=== PATIENT | female | born 1995 | race Hispanic/Latino ===

== ENCOUNTER → 2016-08-24 | Outpatient (CLI) | payer BC, MEDICAID ==
[~2016-08-24] MED LIST: FERR325T74 PO; IBUP-1773 PO; NITR-65 PO; PREN-98 PO; PREN1TAB39 PO
--- NOTE | 2016-08-24 16:48 | Diagnostic Imaging Report ---
PROCEDURE: US OB SINGLE FETUS <14 WKS. INDICATION: Unsure of LMP, undergoing evaluation for dates. TECHNIQUE: Multiple real-time grayscale images were obtained of the gravid uterus. CORRELATION STUDY: None FINDINGS: There is presence of an early viable intrauterine . [place]-rump length measuring 2.62 cm for an estimated age of 9 weeks 3 days. This corresponds to an estimated date of delivery of 03/26/2017. cardiac activity at 174 beats per minute. No abnormal perigestational fluid collections. Imaging of the adnexa demonstrates nonvisualization of either ovary may be owing to positioning or simply obscuration. IMPRESSION: 1. Early viable intrauterine estimated age of 9 weeks 3 days for an estimated date of delivery of 03/26/2017. Dictated by: Dictated on workstation # [id number]
== END ==
LOC: RAD 12:06
PROVIDERS: ATTEND Family Medicine
DX: Z34.81 Encounter for supervision of other normal pregnancy, first trimester (principal)
CPT/HCPCS: 76801

== ENCOUNTER → 2016-11-11 | Outpatient (CLI) | payer BC, MEDICAID ==
--- NOTE | 2016-11-11 15:35 | Diagnostic Imaging Report ---
INDICATION: survey. TECHNIQUE: Multiple real-time grayscale images were obtained over the gravid uterus. COMPARISON: 08/24/2016. FINDINGS: heart rate is 150 beats per minute. The placenta is anterior. It extends to the lower uterine segment with about 1 cm separation from the internal os. The amniotic fluid appears adequate. The cervix is 4.4 cm in length and is closed. There is no ventriculomegaly. The posterior fossa appear unremarkable. The urinary bladder appears unremarkable. There are two umbilical arteries seen suggestive of a three-vessel cord. The stomach appears unremarkable. The cord insertion, four-chamber view and the spine are not well seen due to position. Biometrical measurements are as follows: Biparietal 4.49 cm, age 19 weeks 5 days. Head circumference 17.44 cm, age 20 weeks 0 days. Abdominal circumference 15.09 cm, age 20 weeks 3 days. Femur length 3.31 cm, age 20 weeks 3 days. Sonographic estimate age: 20 weeks 1 days. This is concordant with gestational age of 20 weeks and 5 days based on ANA PAULA of 03/26/2017 assigned by first trimester ultrasound. Sonographic estimated date of delivery: 03/30/2017. Estimated Weight: 343 gm (+/- 50 gm). LMP percentile: 23%. heart rate: 150 beats per minute. number: 1 of 1. IMPRESSION: Incomplete survey with poor visualization of the cord insertion, spine and four-chamber view. Reevaluation within 2-3 weeks is recommended. Dictated by: Dictated on workstation # [id number]
== END ==
LOC: RAD 09:59
PROVIDERS: ATTEND Family Medicine
DX: Z34.82 Encounter for supervision of other normal pregnancy, second trimester (principal)
CPT/HCPCS: 76805

== ENCOUNTER → 2017-01-03 | Outpatient (CLI) | payer BC, MEDICAID ==
--- NOTE | 2017-01-03 13:26 | Diagnostic Imaging Report ---
INDICATION: Followup incomplete anatomical survey. TECHNIQUE: Multiple real-time grayscale images were obtained over the gravid uterus. COMPARISON: 11/11/2016. FINDINGS: A single live intrauterine is again demonstrated. The spine was still not well evaluated due to positioning. Echogenic focus noted within the left ventricle which is commonly incidental though can be associated with some syndromes. Recommend continued sonographic followup. Otherwise, there is good visualization of a four-chamber heart on today's exam. There is good visualization of the umbilical cord insertion. presentation is cephalic. Amniotic fluid index is normal measuring 7.6 cm. Grade 1 placenta is located anteriorly with no placenta previa. heart rate measures 161 beats per minute. IMPRESSION: 1. Good visualization of the umbilical cord insertion. 2. Echogenic focus within the left ventricle. 3. Continued poor visualization of the spine due to positioning. Recommend continued short-term sonographic followup. Dictated by: Dictated on workstation # [id number]
== END ==
LOC: RAD 11:36
PROVIDERS: ATTEND Family Medicine
DX: Z36 Encounter for antenatal screening of mother (principal); Z3A.00 Weeks of gestation of pregnancy not specified
CPT/HCPCS: 76816

== ENCOUNTER 2017-03-21 09:50 | Inpatient (IN) | payer MEDICAID ==
[~2017-03-21] VITALS: Ht 157.5 cm; Wt 93.6 kg
[2017-03-21] VITALS (24 sets, daily range): BP systolic 99–141; BP diastolic 56–88
[2017-03-21] MEDS ORDERED: MINERAL OIL CONCENTRATE 99.9% 15 ML UDC TOP PRN (10:30)
[2017-03-21 10:45] LABS: BASOPHILS % (AUTO) 0 % (0-10); EOSINOPHILS # (AUTO) 0.1 10^3/uL (0.0-0.3); EOSINOPHILS % (AUTO) 1 % (0-10); LYMPHOCYTES # (AUTO) 1.5 X 10^3 (1.0-4.0); LYMPHOCYTES % (AUTO) 18 % (12-44); MEAN CORPUSCULAR HEMOGLOBIN 30 PG (25-34); MEAN CORPUSCULAR HGB CONC 33 G/DL (32-36); MEAN CORPUSCULAR VOLUME 93 FL (80-99); MEAN PLATELET VOLUME 10.2 FL (7.4-10.4); MONOCYTES # (AUTO) 0.8 X 10^3 (0.0-1.0); MONOCYTES % (AUTO) 9 % (0-12); NEUTROPHILS # (AUTO) 6.2 X 10^3 (1.8-7.8); NEUTROPHILS % (AUTO) 73 % (42-75); PLATELET COUNT 262 10^3/uL (130-400); RED BLOOD COUNT 3.85 10^6/uL (4.35-5.85); RED CELL DISTRIBUTION WIDTH 12.3 % (10.0-14.5); WHITE BLOOD COUNT 8.6 10^3/uL (4.3-11.0)
[2017-03-21] MEDS ORDERED: CATHETER FLUSH 10 ML SYR IV SCH ×2 (14:00→22:00)
[2017-03-21] MEDS: D5 LR IV SOLUTION 1,000 ML IV SCH ×2 (15:52→18:44)
--- NOTE | 2017-03-21 18:09 | History & Physical-OB ---
OB - Chief Complaint & HPI Date/Time Date of Admission: Date of Admission: Mar 21, 2017 at 10:10 Time Seen by Provider: 18:03 Chief Complaint/History OB-Reason for Admission/Chief: Onset of Labor (Ctxs started tuesday night, increase in intensity this AM at 5 AM) Hx : 5 Hx Para: 2 Expected Date of Delivery: Mar 26, 2017 Gestational Age in Weeks: 39 Allergies and Home Medications Allergies Coded Allergies: No Known Drug Allergies (Unverified , 09/24/10) Home Medications Ibuprofen 600 Mg Tablet, 600 MG PO Q6H, #90 Ref 0 Prescribed by: KIMBERLEE MAHAN on 08/27/15 0929 Vit37/Iron/Folic Acid 1 Each Tab.chew, 1 EACH PO, (Reported) OB - History Hx of Present Care: Yes Ultrasounds: Normal mid trimester US Obstetrical Complications: None Medical Complications: None Information Induced Hypertension: No Maternal Gestational Diabetes: No Hemorrhage: No Obstetrical History Hx : 5 Hx Para: 2 Hx Termination: No Hx Total # of Abortions (Spona: 2 Hx Multiple Gestation: No Hx Stillbirth: No Hx Complication: No Hx Induced Hypertens: No Hx Maternal Gestational Diabet: No Delivery History Hx Dystocia: No Hx Large For Gestational Age I: No Hx Small for Gestational Age I: No Hx Section: No Hx Vaginal Delivery Post C-Sec: No Hx Blood Disorders: No Adverse Rxn to Tranfusion: No Patient Past Medical History N/A Social History/Family History HIV/AIDS: No Recent Infectious Disease Expo: No Sexually Transmitted Disease: No Alcohol Use: Denies Use Recreational Drug Use: No Smoking Cessation: Never smoker Immunizations Hepatitis A: No Hepatitis B: No Tetanus Booster (TDap): Less than 5yrs (01/25/17) Date of Influenza Vaccine: Mar 14, 2017 Rubella: immune RPR/VDRL: Negative GBS Status: Negative HBsAG: Negative OB - Admission Exam Physical Exam Date Seen by Provider: Mar 21, 2017 Time Seen by Provider: 18:07 Vitals: Vital Signs 03/21/17 03/21/17 15:00 17:00 Temp 97.4 Pulse 106 Resp 18 B/P (MAP) 132/60 O2 Delivery Room Air Heart: Rhythm Normal Lungs: Clear Abdomen: Non tender Extremities: Normal Reflexes: Normal Cervical Dilatation: 6cm Effacement: 75% Station: -1 Membranes: Ruptured Amniotic Fluid: Clear Accelerations: Accelerations Present Decelerations: No Decelerations Contractions on Admission: < 5 Minutes Apart Labs Laboratory Tests Test 03/21/17 10:25 Range/Units White Blood Count 8.6 4.3-11.0 10^3/uL Red Blood Count 3.85 L 4.35-5.85 10^6/uL Hemoglobin 11.7 11.5-16.0 G/DL Hematocrit 36 35-52 % Mean Corpuscular Volume 93 80-99 FL Mean Corpuscular Hemoglobin 30 25-34 PG Mean Corpuscular Hemoglobin Concent 33 32-36 G/DL Red Cell Distribution Width 12.3 10.0-14.5 % Platelet Count 262 130-400 10^3/uL Mean Platelet Volume 10.2 7.4-10.4 FL Neutrophils (%) (Auto) 73 42-75 % Lymphocytes (%) (Auto) 18 12-44 % Monocytes (%) (Auto) 9 0-12 % Eosinophils (%) (Auto) 1 0-10 % Basophils (%) (Auto) 0 0-10 % Neutrophils # (Auto) 6.2 1.8-7.8 X 10^3 Lymphocytes # (Auto) 1.5 1.0-4.0 X 10^3 Monocytes # (Auto) 0.8 0.0-1.0 X 10^3 Eosinophils # (Auto) 0.1 0.0-0.3 10^3/uL Basophils # (Auto) 0.0 0.0-0.1 10^3/uL OB - Assessment/Plan/Diagnosis Assessment Assessment: active labor Plan Plan: Expectant Management Other Plan 21 yo @ 39.2 wga here in Active labor Plan - SROM - GBS neg - Expect vaginal delivery Copy Copies To 1: PHILOMENA TELLO MD, HOLLY R MD Mar 21, 2017 18:08
[2017-03-21] MEDS ORDERED: OXYTOCIN/NORMAL SALINE 500 ML IV ONE (18:23)
[2017-03-21] MEDS ORDERED: BUTORPHANOL INJ 2 MG/ML (STADOL) VIAL ONE (18:29)
[2017-03-21] MEDS ORDERED: BUTORPHANOL INJ 2 MG/ML (STADOL) VIAL IV ONE (18:45)
[2017-03-21] MEDS ORDERED: OXYTOCIN/NORMAL SALINE 500 ML IV SCH (18:45)
[2017-03-21] MEDS ORDERED: MISOPROSTOL 200 MCG (CYTOTEC) TABLET ONE (20:27)
[2017-03-21] MEDS: OXYTOCIN/NORMAL SALINE 500 ML IV SCH ×2 (20:30→21:04)
[2017-03-21] MEDS ORDERED: BENZOCAINE/MENTHOL (DERMOPLAST) 56 ML CAN TP PRN (20:45)
[2017-03-21] MEDS ORDERED: MEASLES,MUMPS,RUBELLA 1 EA INJ SQ ONE (20:45)
[2017-03-21] MEDS ORDERED: WITCH HAZEL(TUCKS) 40 EA JAR TOP PRN (20:45)
[2017-03-21] MEDS ORDERED: MISOPROSTOL 200 MCG (CYTOTEC) TABLET PO ONE (20:45)
--- NOTE | 2017-03-21 20:58 | OB Labor & Delivery Record ---
Vag Delivery Note Vag Delivery Note Date of Delivery: 03/21/17 Preoperative Diagnosis: Cande Banuelos is a (21 /Para 5 / 2, Gestational Age (wks)39.2 wga here in active labor Postoperative Diagnosis: Same Surgeon: PHILOMENA TELLO Mustanger: [Jessica Gilmore, MS3] Anesthesia: [None] Delivery Type: [ with manual extraction of placenta] Findings: [AGA male , normal placenta] Viable [male] , apgars [9/9], weight [7#7, 3385 grams] Lacerations: None Intact placenta with 3 vessel cord. nuchal cord x 1 reduced on perineum, No body cord or shoulder dystocia Cytotec 800 mcg placed rectally and Pitocin started at delivery of placenta for hemorrhage prophylaxis Estimated Blood Loss: [200] ml Complications: Manual extraction of placenta Condition: Stable Description of Procedure: The patient is a 21 yo G5 now P3 who presented in active labor today. She was admitted and informed consent was obtained. Her labor course was unremarkable. She progressed to complete dilatation and began to push. She was then set up for delivery. The infant's head was delivered atraumatically in the MARIUSZ position and nuchal cord x1 was reduced on perineum. The shoulders and remainder of the 's body were then delivered without difficulty. Upon delivery, the head was held below the level of the perineum and the mouth and nares were bulb suctioned. The cord was doubly clamped and cut by infant's father and the was handed off to the pediatric staff. An intact placenta with 3-vessel cord delivered via manual extraction and there was found to be minimal bleeding.~ Vigorous fundal massage was performed and the fundus was found to be firm. IV oxytocin was given and Cytotec placed rectally. Examination of the vagina and perineum revealed a no lacerations. The sponge, instrument and needle counts were correct. Mom and baby were both in stable condition in the labor suite. Vitals - Labs Vital Signs - I&O Vital Signs Date Time Temp Pulse Resp B/P (MAP) Pulse Ox O2 Delivery O2 Flow Rate FiO2 03/21/17 19:00 83 18 107/58 Room Air 03/21/17 18:45 100 18 115/57 Room Air 03/21/17 18:30 98.4 104 18 128/72 Room Air 03/21/17 18:15 107 18 131/70 Room Air 03/21/17 18:00 101 18 140/71 Room Air 03/21/17 17:30 106 18 117/60 Room Air 03/21/17 17:00 106 18 132/60 Room Air 03/21/17 16:30 111 18 122/69 Room Air 03/21/17 15:00 97.4 114 18 120/68 Room Air 03/21/17 13:00 97.8 03/21/17 12:07 112 18 123/72 Room Air 03/21/17 10:47 98.2 100 16 122/68 Room Air 03/21/17 10:00 98.6 112 16 137/75 Room Air Labs Laboratory Tests 03/21/17 10:25: White Blood Count 8.6, Red Blood Count 3.85L, Hemoglobin 11.7, Hematocrit 36, Mean Corpuscular Volume 93, Mean Corpuscular Hemoglobin 30, Mean Corpuscular Hemoglobin Concent 33, Red Cell Distribution Width 12.3, Platelet Count 262, Mean Platelet Volume 10.2, Neutrophils (%) (Auto) 73, Lymphocytes (%) (Auto) 18 , Monocytes (%) (Auto) 9, Eosinophils (%) (Auto) 1, Basophils (%) (Auto) 0, Neutrophils # (Auto) 6.2, Lymphocytes # (Auto) 1.5, Monocytes # (Auto) 0.8, Eosinophils # (Auto) 0.1, Basophils # (Auto) 0.0 PHILOMENA TELLO MD Mar 21, 2017 20:58
[2017-03-21] MEDS: IBUPROFEN 600 MG (MOTRIN) TAB PO SCH (21:28)
[2017-03-22 01:30] VITALS: BP 113/66
[2017-03-22] MEDS: IBUPROFEN 600 MG (MOTRIN) TAB PO SCH ×4 (03:21→22:12)
[2017-03-22 04:42] LABS: BASOPHILS % (AUTO) 0 % (0-10); EOSINOPHILS % (AUTO) 0 % (0-10); LYMPHOCYTES # (AUTO) 1.8 X 10^3 (1.0-4.0); LYMPHOCYTES % (AUTO) 15 % (12-44); MEAN CORPUSCULAR HEMOGLOBIN 30 PG (25-34); MEAN CORPUSCULAR HGB CONC 33 G/DL (32-36); MEAN CORPUSCULAR VOLUME 93 FL (80-99); MEAN PLATELET VOLUME 10.2 FL (7.4-10.4); MONOCYTES # (AUTO) 1.1 X 10^3 (0.0-1.0); MONOCYTES % (AUTO) 9 % (0-12); NEUTROPHILS # (AUTO) 9.3 X 10^3 (1.8-7.8); NEUTROPHILS % (AUTO) 76 % (42-75); PLATELET COUNT 229 10^3/uL (130-400); RED CELL DISTRIBUTION WIDTH 12.3 % (10.0-14.5); WHITE BLOOD COUNT 12.1 10^3/uL (4.3-11.0)
[2017-03-22 05:20] VITALS: BP 123/73
--- NOTE | 2017-03-22 09:23 | Progress Note (SOAP) ---
Subjective Subjective/Events-last exam Doing well. . Lochia has decreased, only mild cramping w/ . Review of Systems Date Seen by Provider: Mar 22, 2017 Time Seen by Provider: 09:22 Objective Exam Last Set of Vital Signs Vital Signs Date Time Temp Pulse Resp B/P (MAP) Pulse Ox O2 Delivery O2 Flow Rate FiO2 03/22/17 05:20 97.2 87 16 123/73 98 Room Air Capillary Refill : General: Alert, Oriented X3, Cooperative Abdomen: Soft, No Tenderness, Other (fundus firm) Psych/Mental Status: Mood NL Results/Procedures Lab Laboratory Tests 03/21/17 10:25: White Blood Count 8.6, Red Blood Count 3.85L, Hemoglobin 11.7, Hematocrit 36, Mean Corpuscular Volume 93, Mean Corpuscular Hemoglobin 30, Mean Corpuscular Hemoglobin Concent 33, Red Cell Distribution Width 12.3, Platelet Count 262, Mean Platelet Volume 10.2, Neutrophils (%) (Auto) 73, Lymphocytes (%) (Auto) 18 , Monocytes (%) (Auto) 9, Eosinophils (%) (Auto) 1, Basophils (%) (Auto) 0, Neutrophils # (Auto) 6.2, Lymphocytes # (Auto) 1.5, Monocytes # (Auto) 0.8, Eosinophils # (Auto) 0.1, Basophils # (Auto) 0.0 03/22/17 04:20: White Blood Count 12.1H, Red Blood Count 3.20L, Hemoglobin 9.7L, Hematocrit 30L , Mean Corpuscular Volume 93, Mean Corpuscular Hemoglobin 30, Mean Corpuscular Hemoglobin Concent 33, Red Cell Distribution Width 12.3, Platelet Count 229, Mean Platelet Volume 10.2, Neutrophils (%) (Auto) 76H, Lymphocytes (%) (Auto) 15 , Monocytes (%) (Auto) 9, Eosinophils (%) (Auto) 0, Basophils (%) (Auto) 0, Neutrophils # (Auto) 9.3H, Lymphocytes # (Auto) 1.8, Monocytes # (Auto) 1.1H, Eosinophils # (Auto) 0.0, Basophils # (Auto) 0.0 Assessment/Plan Assessment/Plan Plan 1. PPD#1 s/p at term; YOVANY 2. Manual extraction of placenta; received cytotec - normal lochia at this time 3. mild post- anemia - asymptomatic - anticipate DC home tomorrow. Diagnosis/Problems: Clinical Quality Measures DVT/VTE Risk/Contraindication: Risk Factor Score Per Nursin RFS Level Per Nursing on Admit: 1=Low/No VTE PPX KIMBERLEE MAHAN DO Mar 22, 2017 09:23
[2017-03-22 09:30] VITALS: BP 129/61
[2017-03-22 14:00] VITALS: BP 105/64
[2017-03-22 18:40] VITALS: BP 127/74
[2017-03-22 20:00] VITALS: BP 124/77
[2017-03-23 02:00] VITALS: BP 126/79
[2017-03-23] MEDS: IBUPROFEN 600 MG (MOTRIN) TAB PO SCH ×2 (04:48→12:44)
--- NOTE | 2017-03-23 09:16 | Discharge Summary ---
Diagnosis/Chief Complaint Date of Admission Mar 21, 2017 at 10:10 Date of Discharge Mar 23, 2017 Admission Diagnosis Admission Diagnosis Spontaneous onset of labor at 39w2d Discharge Diagnosis 1. PPD#2 s/p at term; YOVANY 2. Manual extraction of placenta; received cytotec - normal lochia at this time 3. mild post- anemia - asymptomatic - DC home today Discharge Summary-OBS Procedures None. Discharge Physical Examination Allergies: Coded Allergies: No Known Drug Allergies (Unverified , 09/24/10) Vitals & I&Os Vital Sign - Last 12Hours Date Time Temp Pulse Resp B/P (MAP) Pulse Ox O2 Delivery O2 Flow Rate FiO2 03/23/17 02:00 97.1 96 17 126/79 98 Room Air General Appearance: Alert, Oriented X3, Cooperative Psych/Mental Status: Mood NL Hospital Course Routine course Labs Laboratory Tests 03/21/17 10:25: White Blood Count 8.6, Red Blood Count 3.85L, Hemoglobin 11.7, Hematocrit 36, Mean Corpuscular Volume 93, Mean Corpuscular Hemoglobin 30, Mean Corpuscular Hemoglobin Concent 33, Red Cell Distribution Width 12.3, Platelet Count 262, Mean Platelet Volume 10.2, Neutrophils (%) (Auto) 73, Lymphocytes (%) (Auto) 18 , Monocytes (%) (Auto) 9, Eosinophils (%) (Auto) 1, Basophils (%) (Auto) 0, Neutrophils # (Auto) 6.2, Lymphocytes # (Auto) 1.5, Monocytes # (Auto) 0.8, Eosinophils # (Auto) 0.1, Basophils # (Auto) 0.0 03/22/17 04:20: White Blood Count 12.1H, Red Blood Count 3.20L, Hemoglobin 9.7L, Hematocrit 30L , Mean Corpuscular Volume 93, Mean Corpuscular Hemoglobin 30, Mean Corpuscular Hemoglobin Concent 33, Red Cell Distribution Width 12.3, Platelet Count 229, Mean Platelet Volume 10.2, Neutrophils (%) (Auto) 76H, Lymphocytes (%) (Auto) 15 , Monocytes (%) (Auto) 9, Eosinophils (%) (Auto) 0, Basophils (%) (Auto) 0, Neutrophils # (Auto) 9.3H, Lymphocytes # (Auto) 1.8, Monocytes # (Auto) 1.1H, Eosinophils # (Auto) 0.0, Basophils # (Auto) 0.0 Discussion & Recommendations Follow-up w/ Dr. Hodgson in 6wk Discharge Instructions to patient/family Please see electronic discharge instructions given to patient. Discharge Medications Reviewed and agree with Discharge Medication list on patient's Discharge Instruction sheet Clinical Quality Measures DVT/VTE Risk/Contraindication: Risk Factor Score Per Nursin RFS Level Per Nursing on Admit: 1=Low/No VTE PPX Copy Copies To 1: PHILOMENA HODGSON MD, LINDA K DO Mar 23, 2017 09:16
[2017-03-23] MEDS ORDERED: IBUP-1773 PO (09:17)
--- NOTE | 2017-03-23 09:19 | Discharge Instructions ---
Discharge Inst-Women's Serv Depart Medications New, Converted or Re-Newed RX: Other (may take OTC or call to pharmacy) New Medications: Ibuprofen (Ibuprofen) 600 Mg Tablet 600 MG PO Q6H PRN for CRAMPS, #90 TAB Continued Medications: Vit37/Iron/Folic Acid ([place] Chewable Tablet) 1 Each Tab.chew 1 EACH PO, TAB Activity Activity: Activity as Tolerated Nothing Inside Vagina: No Douching, No [place], No Tampons Diet Discharge Diet: No Restrictions Symptoms to Report to DrSarahi: Bleeding Excessive, Pain Increased, Fever Over 101 Degrees F, Vaginal Bleeding Increase, Vaginal Discharge Foul, Shortness of Breath For Any Problems or Questions: Contact Your Physician Copies To 1: PHILOMENA TELLO MD, LINDA K DO Mar 23, 2017 09:18
[2017-03-23 09:30] VITALS: BP 128/79
[2017-03-23 10:30] VITALS: BP 128/79
== END 2017-03-23 14:19 | disposition home or self-care (01) | DRG 767 ==
LOC: WSo 09:50 → LDRP 09:50 → WSo 10:10 → LDRP 10:10
PROVIDERS: ADMIT Family Medicine; ATTEND Family Medicine
PROC: 10E0XZZ Delivery of Products of Conception, External Approach (ICD-10-PCS; principal; 2017-03-21)
PROC: 10D17Z9 Manual Extraction of Products of Conception, Retained, Via Natural or Artificial Opening (ICD-10-PCS; 2017-03-21)
DX: O73.1 Retained portions of placenta and membranes, without hemorrhage (principal); O69.81X0 Labor and delivery complicated by cord around neck, without compression, not applicable or unspecified; O90.81 Anemia of the puerperium; D64.9 Anemia, unspecified; Z37.0 Single live birth; Z3A.39 39 weeks gestation of pregnancy
CPT/HCPCS: 36415; 85025; 86850; 86900; 86901; 99212